=== PATIENT | female | born 1990 | race Caucasian/White ===

== ENCOUNTER → 2019-02-16 | Outpatient (CLI) | payer BC | LOC: RAD 09:30 | DX: Z30.431 Encounter for routine checking of intrauterine contraceptive device (principal) ==

== ENCOUNTER 2019-12-25 18:29 | Emergency (ER) | payer BC ==
[2019-12-25] MEDS ORDERED: WELLBUTRIN (18:43)
[2019-12-25] MEDS ORDERED: NATURE'S BLEND500 M5 PO (18:43)
[2019-12-25] MEDS ORDERED: MULTIVITAMIN1 SGL PO (18:43)
[2019-12-25 19:27] LABS: EOS # 0.3 (0.04-0.40); HEMATOCRIT 40.9 % (37.0-47.0); HEMOGLOBIN 13.2 g/dL (12.5-16.0); LYMPH# 3.8 (1.50-4.00); MEAN CELL VOLUME 96 fl (78-100); MEAN CORPUSCULAR HEMOGLOBIN 31 pg (27-31); MEAN CORPUSCULAR HGB CONC 32 g/dL (33-37); MEAN PLATELET VOLUME 8.9 fl (7.4-10.4); MONO # 0.6 (0.20-0.80); NEU # 4.9 (1.40-6.50); PLATELET COUNT 255 K/mm3 (130-400); RED BLOOD COUNT 4.28 M/mm3 (4.10-5.30); WHITE BLOOD COUNT 9.6 K/mm3 (4.8-10.8)
[2019-12-25 19:35] LABS: ALBUMIN 4.3 g/dL (3.5-5.0); POTASSIUM 4.4 mmol/L (3.5-5.1)
[2019-12-25 19:36] LABS: CALCIUM 9.2 mg/dL (8.3-10.5)
[2019-12-25 19:38] LABS: TOTAL PROTEIN 6.9 g/dL (6.4-8.3)
[2019-12-25 19:39] LABS: TOTAL BILIRUBIN 0.2 mg/dL (0.2-1.2)
[2019-12-25 20:51] LABS: URINE APPEARANCE HAZY; URINE BILIRUBIN NEGATIVE (NEGATIVE); URINE BLOOD TRACE (NEGATIVE); URINE COLOR YELLOW; URINE GLUCOSE NEGATIVE (NEGATIVE); URINE KETONE NEGATIVE (NEGATIVE); URINE LEUKOCYTE ESTERASE NEGATIVE (NEGATIVE); URINE NITRATE NEGATIVE (NEGATIVE); URINE PROTEIN(semi-quant) TRACE mg/dL (NEGATIVE); URINE UROBILINOGEN NORMAL (NORMAL)
[2019-12-25 20:52] LABS: URINE WBC 0-1 /hpf (0-3)
[2019-12-25 21:17] VITALS: BP 138/85
== END 2019-12-25 21:18 | disposition home or self-care (01) ==
LOC: ED 18:29
PROVIDERS: Nurse Practitioner
DX: R10.12 Left upper quadrant pain (principal); F17.210 Nicotine dependence, cigarettes, uncomplicated; Z98.890 Other specified postprocedural states
CPT/HCPCS: J2405; J3010; Q9967

== ENCOUNTER 2020-07-26 15:40 | Emergency (ER) | payer BC ==
[~2020-07-26] VITALS: Ht 160 cm; Wt 70.9 kg
[~2020-07-26 15:40] MED LIST: MULTIVITAMIN1 SGL PO; NATURE'S BLEND500 M5 PO; WELLBUTRIN
[2020-07-26] MEDS ORDERED: MIRENA52 MG IU (15:51)
[2020-07-26] MEDS ORDERED: HYDROXYZINE HYD50 M1 PO (15:54)
[2020-07-26] MEDS ORDERED: AMOXIL500 M1 (15:55)
[2020-07-26 16:50] LABS: EOS # 0.1 (0.04-0.40); EOS % 0.9 % (1.0-5.0); HEMATOCRIT 44.2 % (37.0-47.0); HEMOGLOBIN 14.6 g/dL (12.5-16.0); LYMPH# 5.5 (1.50-4.00); MEAN CELL VOLUME 98 fl (78-100); MEAN CORPUSCULAR HEMOGLOBIN 32 pg (27-31); MEAN CORPUSCULAR HGB CONC 33 g/dL (33-37); MEAN PLATELET VOLUME 8.3 fl (7.4-10.4); MONO # 0.8 (0.20-0.80); NEU # 4.2 (1.40-6.50); PLATELET COUNT 266 K/mm3 (130-400); RED CELL DISTRIBUTION WIDTH 13.6 % (11.5-14.5); WHITE BLOOD COUNT 10.6 K/mm3 (4.8-10.8)
[2020-07-26 17:01] LABS: ALBUMIN 4.4 g/dL (3.5-5.0)
[2020-07-26 17:02] LABS: POTASSIUM 3.6 mmol/L (3.5-5.1)
[2020-07-26 17:04] LABS: TOTAL PROTEIN 7.1 g/dL (6.4-8.3)
[2020-07-26 17:06] LABS: TOTAL BILIRUBIN 0.3 mg/dL (0.2-1.2)
[2020-07-26 17:07] LABS: PH-URINE 5.5 (5.0 - 8.0); URINE APPEARANCE CLEAR; URINE BILIRUBIN NEGATIVE (NEGATIVE); URINE BLOOD NEGATIVE (NEGATIVE); URINE COLOR YELLOW; URINE GLUCOSE NEGATIVE (NEGATIVE); URINE KETONE NEGATIVE (NEGATIVE); URINE LEUKOCYTE ESTERASE NEGATIVE (NEGATIVE); URINE NITRATE NEGATIVE (NEGATIVE); URINE PROTEIN(semi-quant) NEGATIVE (NEGATIVE); URINE UROBILINOGEN NORMAL (NORMAL)
[2020-07-26] MEDS ORDERED: TRAMADOL 50 MG TAB PO (17:34)
[2020-07-26 17:54] VITALS: BP 132/97
== END 2020-07-26 17:39 | disposition home or self-care (01) ==
LOC: ED 15:40
PROVIDERS: Nurse Practitioner
DX: R10.2 Pelvic and perineal pain (principal); F41.9 Anxiety disorder, unspecified; F17.210 Nicotine dependence, cigarettes, uncomplicated; Z88.6 Allergy status to analgesic agent

== ENCOUNTER → 2022-11-19 | Outpatient (CLI) | payer OTHER ==
[~2022-11-19] MED LIST changes: +AMOXIL500 M1; +HYDROXYZINE HYD50 M1 PO; +MIRENA52 MG IU; +TRAMADOL 50 MG TAB PO
== END ==
LOC: RAD 13:24
DX: R22.32 Localized swelling, mass and lump, left upper limb (principal)